=== PATIENT | female | born 1980 | race Two or more races ===

== ENCOUNTER 2025-08-21 06:24 | Emergency (ER) | payer OTHER ==
[~2025-08-21] VITALS: Ht 177.8 cm; Wt 82.6 kg
[~2025-08-21 06:24] MED LIST: ALBUTEROL2.5 MG/3 M IH; PERCOCET 5/3251 TAB PO; PROVENTIL S1 ML/5 MG
[2025-08-21] MEDS ORDERED: 0.9 % SODIUM CHLORIDE 1,000 ML IV ONE (08:45)
[2025-08-21] MEDS ORDERED: GUAIFENESIN 200 MG/10 ML BLIST.PACK PO ONE (08:45)
[2025-08-21] MEDS ORDERED: BENZONATATE 100 MG CAPSULE PO ONE (08:45)
[2025-08-21] MEDS ORDERED: ONDANSETRON HCL 2 MG/ML VIAL IV ONE (08:45)
[2025-08-21] MEDS ORDERED: LEVALBUTEROL HCL 1.25 MG/3 ML SOLUTION IH SCH (08:45)
[2025-08-21] MEDS ORDERED: ACETAMINOPHEN 500 MG GEL..CAP PO ONE (08:45)
[2025-08-21] MEDS ORDERED: IPRATROPIUM BROMIDE 0.5 MG/2.5 ML AMPUL.NEB IH SCH (08:45)
[2025-08-21 09:19] LABS: BASO % 0.1 % (0.1-1.2); EOS # 0.02 (0.04-0.54); EOS % 0.2 % (0.7-7.0); LYMPH # 0.70 (1.18-3.74); LYMPH % 5.8 % (19.3-53.1); MEAN PLATELET VOLUME 8.70 fl (9.4-12.4); MONO # 0.54 (0.24-0.82); MONO % 4.5 % (4.7-12.5); NEUT # 10.77 (1.56-6.13); NEUT % 89.0 % (34.0-71.1); RED CELL DISTRIBUTION WIDTH 12.1 % (11.6-14.4)
[2025-08-21 10:02] LABS: COVID-19 AG NEGATIVE (NEGATIVE)
[2025-08-21 10:07] LABS: BUN CREA RATIO 12.0 (7.0-25.0); CREATININE SERUM 1.06 mg/dL (0.55-1.02); GFR 56.31; GLUCOSE FASTING 92.0 mg/dL (65-100); OSMOLALITY SERUM 275.0 MOSM/KG (275-295)
== END 2025-08-21 10:56 | disposition home or self-care (01) ==
LOC: ER 06:25
PROVIDERS: General Practice
DX: J10.1 Influenza due to other identified influenza virus with other respiratory manifestations (principal); J45.998 Other asthma; Z20.822 Contact with and (suspected) exposure to COVID-19; Z88.8 Allergy status to other drugs, medicaments and biological substances